=== PATIENT | female | born 1945 | race Caucasian/White ===

== ENCOUNTER 2016-07-15 15:40 | Emergency (ER) | payer OTHER, MEDICARE ==
[~2016-07-15] VITALS: Ht 160 cm; Wt 70.8 kg
[~2016-07-15 15:40] MED LIST: ASPIRIN EC81 M1 PO; BUPROPION HCL150 M3 PO; CIPRO500 M1 PO; DICLOFENAC SODI75 M2 PO; DICYCLOMINE HCL10 M1 PO; FLOVENT HFA10.6 GM INH; HYDROCODON-ACE1 EAC2 PO; LIPITOR20 M2 PO; LISINOPRIL10 M1 PO; LOTRONEX PO; PROTONIX40 M3 PO; SYNTHROID125 MCG PO; VICODIN 300 MG-1 TAB PO; VITAMIN D2000 UNI1 PO
[2016-07-15 17:08] LABS: ABSOLUTE BASOPHIL COUNT 0.1 /CUMM (0.0-0.2); ABSOLUTE EOSINOPHIL COUNT 0.2 /CUMM (0.0-0.7); ABSOLUTE LYMPH COUNT 2.2 /CUMM (1.2-3.4); ABSOLUTE MONOCYTE COUNT 0.4 /CUMM (0.10-0.60); BASOPHIL % 0.8 % (0.0-2.0); GRANULOCYTE % 63.5 % (42.2-75.2); HEMATOCRIT 38.1 % (37-47); MEAN CORPUSCULAR HGB CONC 33.8 G/DL (33.0-37.0); MEAN CORPUSCULAR VOLUME 88.8 FL (81.0-99.0); MEAN PLATELET VOLUME 8.6 FL (7.4-10.4); PLATELET COUNT 243 /CUMM (130-400); RBC DISTRIBUTION WIDTH 13.2 % (11.5-14.5); RED BLOOD CELL CT 4.29 /CUMM (4.20-5.40); WHITE BLOOD CELL COUNT 7.9 /CUMM (4.8-10.8)
--- NOTE | 2016-07-15 17:44 | ED GI/GU/ABDOMINAL COMPLAINT ---
History of Present Illness General Chief Complaint: Female Urogenital Problems Stated Complaint: ?UTI Source: patient Exam Limitations: no limitations Vital Signs & Intake/Output Vital Signs & Intake/Output Vital Signs Date Time Temp Pulse Resp B/P B/P Pulse O2 O2 Flow FiO2 Mean Ox Delivery Rate 07/15 1745 98.8 84 18 174/84 98 Room Air 07/15 1543 99.7 85 18 167/91 97 Room Air Allergies Coded Allergies: NO KNOWN ALLERGIES (01/20/16) Reconcile Medications Alosetron HCl (Lotronex) 1 MG TABLET 1 TAB PO BID IBS (Reported) Aspirin (Ecotrin*) 81 MG TABLET.DR 1 TAB PO DAILY HEART DISEASE (Reported) Atorvastatin Calcium (Lipitor) 20 MG TABLET 1 TAB PO DAILY CAD (Reported) Bupropion HCl (Bupropion HCl Sr) 150 MG TABLET.ER 1 TAB PO BID ANTI-DEPRESSANT (Reported) Cholecalciferol (Vitamin D3) (Vitamin D) 2,000 UNIT TABLET 1 TAB PO DAILY SUPPLEMENT (Reported) Diclofenac Sodium 75 MG TABLET.DR 1 TAB PO DAILY ARTHRITIS (Reported) Dicyclomine HCl 10 MG CAPSULE 1 CAP PO BID IBS (Reported) Fluticasone Propionate (Flovent Hfa) (Unknown Strength) AER.W.ADAP (Unknown Dose) INH DAILY COPD (Reported) Levothyroxine Sodium (Synthroid) 125 MCG TABLET 1 TAB PO DAILY THYROID ( Reported) Lisinopril 10 MG TABLET 1 TAB PO DAILY HTN (Reported) Pantoprazole Sodium (Protonix) 40 MG TABLET.DR 1 TAB PO DAILY GERD (Reported) Triage Note: PT TO TRIAGE WITH ?UTI C/O PAIN AND BURNING WITH URINATION, LOWER ABD PAIN 8/10 RADIATING TO LOWER BACK, CLOUDY URINE. HX OF MULTIPLE UTI, BLADDER NET. Triage Nurses Notes Reviewed? yes ? n Is pt currently ? No HPI: Ms. Carreon is a 70-year-old female with past medical history of hypertension , hypothyroidism, anemia, cystocele s/p mesh placement and bladder incontinence presenting to the emergency department for pelvic pain. Patient states she was seen by her urologist this past Saturday. She has been having episodes of urinary retention requiring her to insert her finger within her vagina to lift up her bladder just to urinate. Patient endorses both dysuria and increased urinary frequency. At her visit on Saturday, the urologist told her that the mesh is likely not working to support her bladder. She inserted a pessary into her vagina. The patient states that this helped her slightly. Patient denies any chest pain, abdominal pain, cough, shortness of breath, fevers, chills, nausea, vomiting or diarrhea. (NOY TRUONG MD) Past History Travel History Traveled to [place] past 21 day No Medical History Any Pertinent Medical History? none Neurological: NONE EENT: NONE Cardiovascular: hypertension Respiratory: NONE Gastrointestinal: NONE Hepatic: NONE Renal: urinary incontinence, UTI Musculoskeletal: NONE Psychiatric: NONE Endocrine: hypothyroidism Blood Disorders: NONE Cancer(s): NONE ENGLISH INSTRUCTOR/Reproductive: NONE History of MRSA: No History of VRE: No History of CDIFF: No Pneumonia Vaccine: 12/02/13 Surgical History Surgical History: none Psychosocial History What is your primary language [place] Tobacco Use: Never used Family History Hx Contributory? No (NOY TRUONG MD) Review of Systems Review of Systems Constitutional: Reports: see HPI. Comments Review of systems: See HPI, All other systems negative. Constitutional: no chills, no fever, no malaise, no weight loss HEENT: No visual changes, no sore throat, no congestion, no ear pain Cardiovascular: No chest pain , no palpitation , no orthopnea Skin: no rashes, no change in skin Respiratory: No dyspnea no cough no sputum no hemoptysis GI: No nausea no vomiting, no diarrhea, no bloating/constipation : + dysuria, + frequency, +urinary retention. No hematuria, no discharge Musculoskeleletal: No joint pain, no joint swelling, no back pain, no neck pain Neurologic: No numbness no confusion, no headache Psych: No depression Heme/endocrine: No bruising no bleeding Immunology: No lymphadenopathy (NOY TRUONG MD) Physical Exam Physical Exam General Appearance: well developed/nourished, no apparent distress, alert, awake , mild distress Head: atraumatic, normal appearance Eyes: Bilateral: normal appearance, PERRL, EOMI, normal inspection. Ears, Nose, Throat, Mouth: hearing grossly normal Neck: normal inspection, supple, full range of motion Respiratory: normal breath sounds, chest non-tender, no respiratory distress Cardiovascular: regular rate/rhythm Gastrointestinal: normal bowel sounds, soft, non-tender Rectal: deferred Pelvic: normal external exam, Pessary noted within the vagina, no CMT Back: normal inspection, normal range of motion Extremities: normal range of motion Neurologic/Psych: no motor/sensory deficits, awake, alert, oriented x 3, normal gait, normal mood/affect Skin: intact, normal color Core Measures ACS in differential dx? No Severe Sepsis Present: No Septic Shock Present: No (ALEXI BONILLA,NOY) Progress Differential Diagnosis: hernia, hemorrhoids, kidney stone, ovarian cyst, PID/ cervicitis, UTI/pyelo Plan of Care: Orders Procedure Date/time Status CBC WITHOUT DIFFERENTIAL 07/15 162 Complete BASIC METABOLIC PANEL 07/15 162 Complete CULTURE,URINE 07/15 1605 Active URINALYSIS 07/15 1542 Complete Laboratory Tests 07/15/16 1646: Anion Gap 11, Estimated GFR > 60, BUN/Creatinine Ratio 26.7 H, Glucose 125 H, Calcium 9.8, CBC w Diff NO MAN DIFF REQ, RBC 4.29, MCV 88.8, MCH 30.0, RDW 13.2, MPV 8.6, Gran % 63.5, Lymphocytes % 28.5, Monocytes % 5.2, Eosinophils % 2.0, Basophils % 0.8, Absolute Granulocytes 5.0, Absolute Lymphocytes 2.2, Absolute Monocytes 0.4, Absolute Eosinophils 0.2, Absolute Basophils 0.1, PUBS MCHC 33.8 07/15/16 1617: Urine Color YEL, Urine Clarity HAZY H, Urine pH 6.0, Ur Specific [place] 1.020, Urine Protein NEG, Urine Ketones NEG, Urine Nitrite POS H, Urine Bilirubin NEG, Urine Urobilinogen 0.2, Ur Leukocyte Esterase LARGE H, Ur Microscopic SEDIMENT EXAMINED, Urine RBC 3-5, Urine WBC 25-50 H, Ur Epithelial Cells MOD H, Urine Bacteria MOD H, Urine Hemoglobin SMALL H, Urine Glucose NEG Microbiology 07/15 161 URINE ROUT: Urine Culture - RECD Patient is generally well-appearing. She does endorse some mild suprapubic discomfort related to urination. Positive dysuria and increased frequency consistent with UTI. Patient has had multiple UTIs in the past few months. She has history of cystocele status post mesh repair and previous episodes of urinary retention with increased residual volumes after voiding. Bedside ultrasound shows a relatively enlarged bladder with volume of approximately 400 ML's. We will obtain basic labs to assess for urinary function given the enlarged bladder and possibly urinary retention has been ongoing for quite some time. Labs essentially unremarkable. Kidney function is within normal limits. Urine is consistent with significant UTI. Pessary was removed on pelvic exam. No CMT on pelvic exam or other abnormalities. Plan to keep the pessary removed and placed a Wick. I believe this will keep the urethra stented open and promote for constant drainage until the patient goes to see her urologist. Likely the cystocele has been protruding over the urethra causing a kink and preventing urine flow. Plan was discussed with the patient. She understands that she needs to see her urologist as soon as possible. Patient's given Keflex for one week and will take the full course of antibiotics. She was given her first dose here in the ED today. Patient is also given Pyridium to help with the discomfort of the UTI. (NOY TRUONG MD) Initial ED EKG: none (NOY TRUONG MD) Departure Departure Time of Disposition: 1746 Disposition: HOME OR SELF CARE Condition: Stable Clinical Impression Primary Impression: UTI (urinary tract infection) Qualifiers: Urinary tract infection type: acute cystitis Hematuria presence: without hematuria Qualified Code: N30.00 - Acute cystitis without hematuria Referrals: BJ AGOSTO MD (PCP/Family) Additional Instructions: Please take the full course of Keflex. Do not stop taking it even if you feel better. It is important that you call your urologist and set up an appointment for sometime this week. This problem will continue to occur unless the bladder prolapse is corrected. If you develop a fever, have worsening abdominal pain or any other concerning symptoms, please return to the emergency room, for further evaluation. Departure Forms: Customer Survey General Discharge Information (NOY TRUONG MD) PA/TRIMMER MACHINE Co-Sign Statement Statement: ED Attending supervision documentation- [] I saw and evaluated the patient. I have also reviewed all the pertinent lab results and diagnostic results. I agree with the findings and the plan of care as documented in the PA's/TRIMMER MACHINE's documentation. [] I have reviewed the ED Record and agree with the PA's/TRIMMER MACHINE's documentation. [] Additions or exceptions (if any) to the PAs/TRIMMER MACHINE's note and plan are summarized below: [] Resident Co-Sign Statement Statement: ED Attending supervision documentation- [X] I saw and evaluated the patient. I have also reviewed all the pertinent lab results and diagnostic results. I agree with the findings and the plan of care as documented in the Resident's documentation. [X] I have reviewed the ED Record and agree with the Resident's documentation. [] Additions or exceptions (if any) to the Resident's note and plan are summarized below: [] (ELÍAS BONILLA,JEVON Verde)
[2016-07-15 17:45] VITALS: BP 174/84
== END 2016-07-15 17:59 ==
LOC: ERH 15:40
PROVIDERS: Emergency Medicine
DX: N39.0 Urinary tract infection, site not specified (principal)
CPT/HCPCS: 81001; 87086

== ENCOUNTER → 2017-11-19 | Day surgery (SDC) | payer OTHER, MEDICARE ==
[~2017-11-19] VITALS: Ht 160 cm; Wt 74.8 kg
--- NOTE | 2017-11-19 11:44 | Operative Report ---
Operative/Inv Procedure Report Surgery Date: 11/19/17 Name of Procedure: Excision left shoulder soft tissue mass (lipoma) adherent to subcutaneous tissue , muscle, and bone. 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 Post-Operative Diagnosis: Same. Estimated Blood Loss: scant Surgeon/Optical Goods Worker: Sonny Alegria MD/none. Anesthesia: laryngeal mask airway Monitors: EKG/BP/oxygen saturation. IV Fluids: Lactated Ringer's. Implants: None. Urine Output: None. Drains: None. Specimens: Soft tissue mass (presumed lipoma) sent to pathology for histopathological analysis and documentation. Microbiology: None. Tourniquet: None. Complications: None known. Condition: Stable. Operative Indication: The patient is a 71-year-old female with a several year history of a very slowly progressive occasionally painful mass at the left anterosuperior shoulder. She was seen 5+ years ago and was advised to sit tight and keep an eye on the mass and to return for follow-up if the mass changed character or size or if her symptoms changed. The patient eventually returned to me in September, complaining of the mass very slowly enlarging over the years with occasional discomfort. She had decided that she really wanted the mass excised as she did not like the visual appearance of the shoulder and was concerned about the mass enlarging over time and she was concerned that she did have occasional discomfort with pressure applied to the area. 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 This appeared to be encapsulated but adherent to the underlying muscle and bone. We did at this time discussed the risks and benefits and expected outcomes of continued observation and nonoperative management of the mass versus that of operative intervention with surgical excision. All of the patient's questions were answered at length. After discussion of the above the patient did wish that she definitively wanted to move forward with surgery as opposed to living with the mass any further. Surgical consent was obtained. Operative/Procedure Note Note: The patient was brought to the operating room and placed on the operating table in supine position. General anesthesia via LMA was induced by the anesthesia just. A dose of IV antibiotics were given for infection prophylaxis. All bony prominences were well-padded. Both legs were placed in the calf compression sleeves to minimize risk of lower extremity venous pulling and blood clot formation and propagation. The patient's head was gently secured to the overhead door technician attachment to the shoulder attachment of the table. The table was elevated to roughly 50 from the flat supine position. The patient was secured in this position with armrests to either side. The left upper extremity was free draped in the usual sterile fashion. The skin over the superolateral aspect of the shoulder was marked in Ijeoma's lines for a longitudinal incision centered directly over the dorsal aspect of the visible and palpable soft tissue mass. We next infiltrated the skin and superficial subcutaneous tissues with some 0.5% Marcaine with epinephrine to help with bleeding control. The surgical incision was created with a #15 scalpel blade and sharp dissection was continued down through the superficial subcutaneous tissues. After that we switch to scissor dissection and raised full-thickness skin with subcutaneous tissue flaps in a medial and lateral and anterior and posterior direction. This now gave us some visualization of the underlying soft tissue mass which visually was yellow in color and appeared to be an encapsulated soft tissue lipoma. Allis clamps were placed onto the mass. We next dissected circumferentially about the mass with blunt tipped scissors and with fingertip dissection. Further deeply the mass did need dissection with scissors to free it up from the underlying trapezius muscle belly which it was quite adherent to and starting to infiltrate slightly. It was also quite adherent to the underlying lateral clavicle and medial acromion and the superior acromioclavicular joint. After the mass was dissected free of the bone and muscle and subcutaneous tissue it was passed off the field en bloc to be sent to pathology for histopathological analysis and documentation. I did excise several small additional pockets of potential additional lipomatous soft tissue taking us down completely to muscle and bone. The defect was now irrigated multiple times with saline. The soft tissue repair consisted of a layered closure with 0 Vicryl placed in interrupted buried fashion in the deep soft tissues. The fascial layer was repaired with 2-0 Vicryl placed in interrupted buried fashion. The skin margins were then approximated in [id number] fashion using 3-0 Prolene placed in running subcuticular fashion. The wound was washed and dried. Mastisol was applied about the wound margins. Steri-Strips were placed to augment the subcuticular skin repair. The wound was washed and dried again. Adaptic dressing was placed over the Steri-Strips line. This was followed by fluffed open sterile gauze dressings which were packed and depressed as a pressure dressing into the soft tissues and then foam tape was used to help create the pressure dressing and hold the gauze dressings in place. The patient was returned to the supine position. The shoulder attachment previously dropped out from the posterior shoulder was replaced. The patient was awakened from general anesthesia. She was transferred to the stretcher and brought to the recovery room in stable condition having tolerated the procedure well. Findings: Roughly 5 x 5 cm encapsulated lipomatous appearing mass adherent to underlying muscle and bone and surrounding soft cutaneous tissues excised. Discharge Disposition: PACU
== END ==
LOC: STS 02:11
DX: D21.12 Benign neoplasm of connective and other soft tissue of left upper limb, including shoulder (principal); I10 Essential (primary) hypertension; E03.9 Hypothyroidism, unspecified; M19.90 Unspecified osteoarthritis, unspecified site
CPT/HCPCS: 88304; J0131; J0690; J2250; J3490